=== PATIENT | male | born 1950 | race Caucasian/White ===

== ENCOUNTER 2019-10-13 19:30 | Emergency (ER) | payer MEDICARE ==
--- NOTE | 2019-10-13 20:31 | EDM.PDOC ---
ED HPI GENERAL MEDICAL PROBLEM - General Chief Complaint: Laceration Stated Complaint: cut left hand Time Seen by Provider: 10/13/19 19:40 Source of Information: Reports: Patient, RN Notes Reviewed History Limitations: Reports: No Limitations - History of Present Illness INITIAL COMMENTS - FREE TEXT/NARRATIVE: This patient presents to the ED for evaluation of a laceration to his left hand. He states he was filleting a fish when he slipped with the knife and lacerated the palmar surface of his left hand. He denies other injuries or concerns. He denies any recent illnesses including a fever, cough, shortness of breath, or sore throat. He states his tetanus status is up to date. Onset: Today, Sudden Onset Date: 10/13/19 Onset Time: 17:00 Location: Reports: Upper Extremity, Right Improves with: Reports: None Worsens with: Reports: None Context: Reports: Activity Associated Symptoms: Denies: Chest Pain, Cough, Diaphoresis, Headaches, Nausea/ Vomiting, Shortness of Breath, Weakness - Related Data Allergies Allergy/AdvReac Type Severity Reaction Status Date / Time No Known Allergies Allergy Verified 10/13/19 22:43 ED ROS GENERAL - Review of Systems Review Of Systems: Comprehensive ROS is negative, except as noted in HPI. ED EXAM, SKIN/RASH Exam: See Below Exam Limited By: No Limitations General Appearance: Alert, WD/WN, No Apparent Distress Eye Exam: Bilateral Eye: PERRL Ears: Normal External Exam Nose: Normal Inspection Throat/Mouth: Normal Inspection Head: Atraumatic, Normocephalic Neck: Normal Inspection, Supple, Full Range of Motion Respiratory/Chest: No Respiratory Distress, No Accessory Muscle Use Extremities: Normal Range of Motion, Normal Capillary Refill Neurological: Alert, Oriented Psychiatric: Normal Affect Skin: Warm, Dry, Wound/Incision (L-shaped laceration to thenar emminence of left hand, approximately 4 cm x 3 cm) ED SKIN PROCEDURES - Laceration/Wound Repair Left Hand Appearance: Superficial Distal NVT: Neuro & Vascular Intact, No Tendon Injury Anesthetic Type: Local Local Anesthesia - Lidocaine (Xylocaine): 1% Plain Local Anesthetic Volume: Other (14 mL) Skin Prep: Chlorhexidine (Hibiciens) Saline Irrigation (cc's): 200 Exploration/Debridement/Repair: Wound Explored, No Foreign Material Found, Other (flap aligned and well approximated) Closed with: Sutures Lac/Wound length In cm: 7 Suture Size: 4-0 # of Sutures: 11 Suture Type: Nylon Drain Placement: No Sterile Dressing Applied: Provider (bacitracin with telfa and mild compression from coban) Tetanus Status Addressed: Yes Complications: No Course - Vital Signs Last Recorded V/S: Last Vital Signs Temp 36.5 C 10/13/19 19:35 Pulse 93 10/13/19 19:35 Resp 18 10/13/19 19:35 BP 151/96 H 10/13/19 19:35 Pulse Ox 96 10/13/19 19:35 - Re-Assessments/Exams Free Text/Narrative Re-Assessment/Exam: 10/13/19 20:37 This patient presents with a laceration to left hand. The wound was carefully evaluated and explored. The laceration was closed with sutures as noted above. There is no evidence of muscular, tendon, or bony damage with this laceration. No signs of foreign body. Possible complications (infection, scarring) were reviewed with the patient. Follow up with primary care will be indicated suture removal as noted in the discharge section. Departure - Departure Time of Disposition: 20:25 Disposition: Home, Self-Care 01 Condition: Good Clinical Impression: Laceration of hand - Discharge Information *PRESCRIPTION DRUG MONITORING PROGRAM REVIEWED*: No Instructions: Laceration Care, Adult, [id number] Referrals: PCP,None [Primary Care Provider] - Forms: ED Department Discharge Additional Instructions: Antibiotic ointment to cut, keep clean and dry stitches out in 7-10 days 11 stitches Sepsis Event Note - Focused Exam Date Exam was Performed: 10/14/19 Time Exam was Performed: 10:37
== END 2019-10-13 20:26 | disposition home or self-care (01) ==
LOC: LB.ED 19:30
DX: S61.412A Laceration without foreign body of left hand, initial encounter (principal); W26.0XXA Contact with knife, initial encounter
CPT/HCPCS: 12002; 99282; 99282-25